=== PATIENT | female | born 1955 | race Caucasian/White ===

== ENCOUNTER 2021-06-01 23:36 | Emergency (ER) | payer BC, MEDICAID, OTHER ==
[~2021-06-01] VITALS: Ht 170.2 cm; Wt 70.3 kg
[2021-06-02 01:17] LABS: Urine Bacteria FEW /hpf (None Seen); Urine Blood 1+ /uL (Negative); Urine Specific Gravity 1.007 (1.001-1.035); Urine WBC 80 /hpf (0 - 5)
[2021-06-02 02:56] LABS: Eosinophils # (auto) 0.1 10 ^3/uL (0-0.8); Hemoglobin 12.3 g/dL (12.2-16.2); Mean Corpuscular Volume 79.5 fL (80.0-100.0)
[2021-06-02 02:58] LABS: Basophils # (auto) 0.1 10 ^3/uL (0-0.2); Basophils % (auto) 1.1 % (0.0-2.0); Eosinophils % (auto) 1.1 % (0.0-7.0); Hematocrit 38.7 % (36.0-46.0); Lymphocytes # (auto) 1.8 10 ^3/uL (0.4-5.4); Lymphocytes % (auto) 16.1 % (10.0-50.0); Mean Corpuscular Hemoglobin 25.3 pg (28.0-32.0); Mean Corpuscular Hgb Conc. 31.9 g/dL (32.0-36.0); Monocytes # (auto) 0.9 10 ^3/uL (0-1.3); Monocytes % (auto) 7.6 % (0.0-12.0); Neutrophils # (auto) 8.4 10 ^3/uL (1.6-8.6); Neutrophils % (auto) 74.1 % (37.0-80.0); Red Blood Cells 4.87 10^6/uL (4.0-5.20); Red Cell Distribution Width 17.1 % (11.8-14.3); White Blood Cell 11.3 10^3/uL (4.4-10.8)
[2021-06-02 03:16] LABS: Albumin 3.1 g/dL (3.4-5.0); BUN/Creatinine Ratio 19.7; Calcium 10.2 mg/dL (8.5-10.1); Potassium 3.9 mmol/L (3.5-5.1)
[2021-06-02 03:19] LABS: Bilirubin, Total 0.5 mg/dL (0.2-1.0); Total Protein 7.6 g/dL (6.4-8.2)
[2021-06-02 06:00] VITALS: BP 96/55
[2021-06-02] MEDS ORDERED: cefTRIAXone 1GM/50ML D5W 50 ML IV ONE (06:30)
== END 2021-06-02 07:00 | disposition home or self-care (01) ==
LOC: ER 23:36
DX: N39.0 Urinary tract infection, site not specified (principal); T83.018A Breakdown (mechanical) of other urinary catheter, initial encounter; F17.210 Nicotine dependence, cigarettes, uncomplicated; F12.10 Cannabis abuse, uncomplicated; J44.9 Chronic obstructive pulmonary disease, unspecified; E78.5 Hyperlipidemia, unspecified; Z90.710 Acquired absence of both cervix and uterus; Z87.442 Personal history of urinary calculi
CPT/HCPCS: 36415; 51702; 80053; 81001; 85025; 87086; 99284; J0696

== ENCOUNTER 2021-06-08 03:04 | Emergency (ER) | payer BC ==
[~2021-06-08] VITALS: Ht 170.2 cm; Wt 70.3 kg
[2021-06-08 03:05] VITALS: BP 165/96
== END 2021-06-08 05:23 | disposition home or self-care (01) ==
LOC: ER 03:04
DX: T83.011A Breakdown (mechanical) of indwelling urethral catheter, initial encounter (principal); J44.9 Chronic obstructive pulmonary disease, unspecified; E78.5 Hyperlipidemia, unspecified; F17.210 Nicotine dependence, cigarettes, uncomplicated; Z90.710 Acquired absence of both cervix and uterus; Z90.89 Acquired absence of other organs; Z88.5 Allergy status to narcotic agent
CPT/HCPCS: 51702

== ENCOUNTER 2021-06-27 23:16 | Emergency (ER) | payer BC ==
[~2021-06-27] VITALS: Ht 170.2 cm; Wt 70.3 kg
[2021-06-27 23:17] VITALS: BP 152/82
== END 2021-06-28 00:07 | disposition left against medical advice (07) ==
LOC: ER 23:16
DX: R31.9 Hematuria, unspecified (principal); Z53.21 Procedure and treatment not carried out due to patient leaving prior to being seen by health care provider

== ENCOUNTER 2021-07-05 22:33 | Emergency (ER) | payer BC ==
[~2021-07-05] VITALS: Ht 170.2 cm; Wt 70.3 kg
[2021-07-06] MEDS ORDERED: IBUPROFEN 600 MG TAB PO ONE (01:30)
[2021-07-06] MEDS ORDERED: ACETAMINOPHEN 500 MG TAB PO ONE (01:30)
[2021-07-06] MEDS ORDERED: LIDOCAINE 2% (LOCAL ANESTH.) PF 5ml SDV ONE (02:24)
[2021-07-06] MEDS ORDERED: LIDOCAINE 2% (LOCAL ANESTH.) PF 5ml SDV IJ ONE (02:30)
[2021-07-06] MEDS ORDERED: MORPHINE SULFATE INJECTION 2 MG/ML SYRG IM ONE (03:30)
[2021-07-06 03:40] VITALS: BP 160/78
[2021-07-06] MEDS ORDERED: LIDOCAINE VISCOUS 2% 15ML UD MT ONE (04:15)
== END 2021-07-06 05:21 | disposition home or self-care (01) ==
LOC: ER 22:33
DX: T83.011A Breakdown (mechanical) of indwelling urethral catheter, initial encounter (principal); N39.0 Urinary tract infection, site not specified; E78.5 Hyperlipidemia, unspecified; F32.9 Major depressive disorder, single episode, unspecified; J44.9 Chronic obstructive pulmonary disease, unspecified; F17.210 Nicotine dependence, cigarettes, uncomplicated; Z88.5 Allergy status to narcotic agent; Z90.710 Acquired absence of both cervix and uterus; Z90.89 Acquired absence of other organs; Z87.442 Personal history of urinary calculi
CPT/HCPCS: 51702; 81002; 96372; 99284; J2270; J2001

== ENCOUNTER 2022-06-29 06:11 | Emergency (ER) | payer BC, OTHER ==
[~2022-06-29] VITALS: Ht 170.2 cm; Wt 76.8 kg
[2022-06-29 08:03] LABS: Urine Bacteria FEW /hpf (None Seen); Urine Blood Negative /uL (Negative); Urine Budding Yeast FEW /hpf (None Seen); Urine Specific Gravity 1.011 (1.001-1.035); Urine WBC 61 /hpf (0 - 5); Urine WBC Clumps PRESENT /hpf (None Seen)
[2022-06-29] MEDS ORDERED: CIPR-173 PO (08:30)
[2022-06-29 10:34] VITALS: BP 158/83
== END 2022-06-29 10:37 | disposition home or self-care (01) ==
LOC: ER 06:11
DX: R33.9 Retention of urine, unspecified (principal); I10 Essential (primary) hypertension; T83.018A Breakdown (mechanical) of other urinary catheter, initial encounter; F17.210 Nicotine dependence, cigarettes, uncomplicated; J44.9 Chronic obstructive pulmonary disease, unspecified; E78.5 Hyperlipidemia, unspecified; Z90.710 Acquired absence of both cervix and uterus; Z88.6 Allergy status to analgesic agent
CPT/HCPCS: 51702; 81001; 93005

== ENCOUNTER 2024-01-08 02:22 | Emergency (ER) | payer BC, OTHER ==
[~2024-01-08] VITALS: Ht 170.2 cm; Wt 80.0 kg
[~2024-01-08 02:22] MED LIST: CIPR-173 PO
[2024-01-08] MEDS ORDERED: CEFP200T15 PO (05:17)
[2024-01-08 05:46] VITALS: BP 139/84; PULSE 85; RESP 20; TEMP 98.2
[2024-01-08 05:51] VITALS: O2SAT 97
[2024-01-08] MEDS: HYDROcodone-ACET 5/325MG TAB PO ONE (06:10)
== END 2024-01-08 06:11 | disposition home or self-care (01) ==
LOC: ER 02:22
DX: T83.511A Infection and inflammatory reaction due to indwelling urethral catheter, initial encounter (principal); N39.0 Urinary tract infection, site not specified; J44.9 Chronic obstructive pulmonary disease, unspecified; I10 Essential (primary) hypertension; E78.5 Hyperlipidemia, unspecified; F17.210 Nicotine dependence, cigarettes, uncomplicated; F12.10 Cannabis abuse, uncomplicated; Z88.6 Allergy status to analgesic agent; Z90.710 Acquired absence of both cervix and uterus; Z46.6 Encounter for fitting and adjustment of urinary device
CPT/HCPCS: 51702